=== PATIENT | male | born 1970 | race Caucasian/White ===

== ENCOUNTER 2016-12-22 09:45 | Emergency (ER) | payer BC, OTHER ==
[~2016-12-22] VITALS: Ht 175.3 cm; Wt 97.8 kg
[~2016-12-22 09:45] MED LIST: DILA100C PO; TRIL600T PO
[2016-12-22 10:03] VITALS: BP 139/93; PULSE 66; RESP 16; TEMP 98; O2SAT 100
[2016-12-22] MEDS ORDERED: TRIL300T PO (10:03)
[2016-12-22] MEDS ORDERED: TRIL600T PO (10:03)
[2016-12-22] MEDS ORDERED: DILA100C PO ×2 (10:03)
--- NOTE | 2016-12-22 10:24 | PD ---
HPI Chief Complaint: Laceration/Skin Injury Time Seen by Provider: 09:51 Travel History International Travel<30 days: No Contact w/Intl Traveler<30days: No Traveled to known affect area: No History of Present Illness HPI This patient complains of laceration. Duration 30 minutes. Symptoms severity is mild. 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) Seizures: Yes Tetanus Vaccination: Unknown Past Surgical History Neurologic Surgery: Yes (SURGERY FOR BRAIN BLEED AFTER HEAD INJURY IN 2002) Social History Alcohol Use: No Tobacco Use: No Substance Use: No Allergies-Medications (Allergen,Severity, Reaction): Coded Allergies: No Known Allergies (Verified , 12/22/16) Reported Meds & Prescriptions Reported Meds & Active Scripts Active Reported Dilantin (Phenytoin Extended) 100 Mg Cap 1,500 Mg PO HS Dilantin (Phenytoin Extended) 100 Mg Cap 500 Mg PO MORNING Trileptal (Oxcarbazepine) 600 Mg Tab 1,200 Mg PO HS Trileptal (Oxcarbazepine) 300 Mg Tab 900 Mg PO MORNING Review of Systems General / Constitutional: No: Fever HENT: No: Headaches Cardiovascular: No: Chest Pain or Discomfort Respiratory: No: Cough Physical Exam Narrative Psych: Normal mood and affect. Normal insight and judgment. SKIN: Focused skin assessment reveals no rash or ulcers. Skin is warm and dry. Palpation shows no induration or nodules. Right hand: 1.5 center laceration over the right MCP joint. Good flexion and extension strength. No involvement of joint. Neurovascularly intact Data Data Last Documented VS Vital Signs Date Time Temp Pulse Resp B/P Pulse Ox O2 Delivery O2 Flow Rate FiO2 12/22/16 10:03 98.0 66 16 139/93 100 MDM Medical Decision Making Medical Screen Exam Complete: Yes Emergency Medical Condition: Yes Medical Record Reviewed: Yes Differential Diagnosis Laceration, contusion, fracture Narrative Course I have reviewed the patient's electronic medical record. Gave him a tetanus booster LACERATION LOCATION: Right hand LENGTH: 1.5 cm NUMBER OF STITCHES/JONATHAN: 4 REPAIR: The area of the laceration was prepped with Betadine and sterilely draped. The laceration was infiltrated with 3 cc of 1% lidocaine. The wound was copiously irrigated and explored without evidence of foreign body, tendon injury or neurovascular injury. The wound was closed using 4-0 Ethilon. This was a single layer repair. A sterile dressing was applied. The patient was advised to keep the dressing clean and dry. Patient tolerated the procedure well. Suture removal 10 days Diagnosis Primary Impression: Laceration of right hand Qualified Code: S61.411A - Laceration of right hand without foreign body, initial encounter Additional Instructions: The patient was advised to follow up with their physician and return if they worsen. Suture removal 10 days Med/Other Pt SpecificInfo: Other Disposition: 01 DISCHARGE HOME Condition: Stable Yasmany Diggs MD Dec 22, 2016 10:24
[2016-12-22] MEDS ORDERED: TETANUS/DIPHTHERIA TOXOID ADULT 0.5 ML VIAL IM ONE (10:30)
== END 2016-12-22 10:40 | disposition home or self-care (01) ==
LOC: PHED 09:45
DX: S61.411A Laceration without foreign body of right hand, initial encounter (principal); W26.8XXA Contact with other sharp object(s), not elsewhere classified, initial encounter; Y93.H3 Activity, building and construction; Z23 Encounter for immunization
CPT/HCPCS: 12001; 90471; 90714